=== PATIENT | female | born 1965 | race American Indian/Alaskan Native ===

== ENCOUNTER 2021-05-17 08:08 | Emergency (ER) | payer MEDICAID ==
--- NOTE | 2021-05-17 08:43 | Emergency Department Report ---
ED Syncope HPI - General Chief Complaint: Syncope Stated Complaint: SYNCOPE/HYPOTENSION Time Seen by Provider: 05/17/21 08:39 Source: patient, EMS - History of Present Illness Initial Comments: Patient is 55 years old female with history of end-stage renal disease on hemodialysis. Patient brought to the emergency room from a dialysis center for evaluation of 1 episode of syncope. Patient stated that she woke up this morning with dizziness and lightheadedness. Patient stated that she think he passed out for few seconds. Patient stated that she is still having lightheadedness. She is complaining of generalized weakness however she denied any focal weakness, speech problem, visual problem or ataxia. Patient stated that she was discharged from [facility] 2 days ago for COVID-19. Patient stated that she tested negative for discharge.. Patient stated that she took her blood pressure medicine before dialysis today. Timing/Prior Episodes: no prior history, single episode today Precipitating Factors: Positive: lightheadedness Context: standing Loss of Consciousness: brief (seconds) Current Symptoms: lightheadedness - Related Data Allergies/Adverse Reactions: Allergies No Known Allergies Allergy (Unverified 05/17/21 13:00) ED Review of Systems ROS: Stated complaint: SYNCOPE/HYPOTENSION Other details as noted in HPI Comment: All other systems reviewed and negative Constitutional: denies: chills, fever Respiratory: denies: cough, shortness of breath, SOB with exertion Cardiovascular: denies: chest pain, palpitations Gastrointestinal: denies: abdominal pain, nausea, vomiting, diarrhea Musculoskeletal: denies: back pain Neurological: weakness. denies: headache, numbness, paresthesias, confusion, abnormal gait ED Physical Exam - General General appearance: alert, in no apparent distress - Head Head exam: Present: atraumatic, normocephalic, normal inspection - Eye Eye exam: Present: normal appearance, PERRL - ENT ENT exam: Present: normal exam, normal orophraynx, mucous membranes moist - Neck Neck exam: Present: normal inspection, full ROM. Absent: tenderness, meningismus - Respiratory Respiratory exam: Present: normal lung sounds bilaterally - Cardiovascular Cardiovascular Exam: Present: regular rate, normal rhythm, normal heart sounds - GI/Abdominal GI/Abdominal exam: Present: soft, normal bowel sounds. Absent: distended, tenderness, guarding, rebound, rigid, organomegaly, mass, bruit, pulsatile mass, hernia - Extremities Exam Extremities exam: Present: normal inspection, full ROM, normal capillary refill. Absent: tenderness, calf tenderness - Back Exam Back exam: Present: normal inspection, full ROM. Absent: CVA tenderness (R), CVA tenderness (L) - Neurological Exam Neurological exam: Present: alert, oriented X3, CN II-XII intact. Absent: motor sensory deficit - Psychiatric Psychiatric exam: Present: normal mood - Skin Skin exam: Present: warm, intact, normal color ED Course Vital Signs 05/17/21 05/17/21 05/17/21 09:35 09:37 11:14 Temperature 98.7 F Pulse Rate 64 88 Respiratory 19 19 19 Rate Blood Pressure 97/67 Blood Pressure 92/64 [Right] O2 Sat by Pulse 100 100 100 Oximetry 05/17/21 12:20 Temperature Pulse Rate 74 Respiratory 19 Rate Blood Pressure Blood Pressure 95/59 [Right] O2 Sat by Pulse 100 Oximetry ED Medical Decision Making - Lab Data Result diagrams: 05/17/21 09:29 05/17/21 09:29 - EKG Data -: EKG Interpreted by [place] EKG shows normal: sinus rhythm Rate: normal - EKG Data Interpretation: no acute changes - Radiology Data Radiology results: report reviewed - Medical Decision Making Patient is 55 years old female with history of end-stage renal disease on hemodialysis. Patient brought to the emergency room from a dialysis center for evaluation of 1 episode of syncope. Patient stated that she woke up this morning with dizziness and lightheadedness. Patient stated that she think he passed out for few seconds. Patient stated that she is still having lightheadedness. She is complaining of generalized weakness however she denied any focal weakness, speech problem, visual problem or ataxia. Patient stated that she was discharged from [facility] 2 days ago for COVID-19. Patient stated that she tested negative for discharge.. Patient stated that she took her blood pressure medicine before dialysis today. Labs reviewed and showed chronic elevation of creatinine and BUN. D-dimer significantly elevated however the VQ scan showed low probability. Patient stated that she is back to normal. Patient received a liter of normal saline. Patient strongly advised to follow-up with her primary care physician in the next 2 to 3 days and to follow-up with dialysis in the morning. Critical care attestation.: If time is entered above; I have spent that time in minutes in the direct care of this critically ill patient, excluding procedure time. ED Disposition Clinical Impression: Syncope, End stage renal disease on dialysis Disposition: 01 HOME / SELF CARE / HOMELESS Is pt being admited?: No Condition: Stable Instructions: Syncope (ED), Dialysis, Syncope, [id number] Referrals: PRIMARY CARE,MD [Primary Care Provider] - 3-5 Days
--- NOTE | 2021-05-17 09:08 | Cat Scan Report ---
CT HEAD WITHOUT CONTRAST INDICATION / CLINICAL INFORMATION: Syncope. TECHNIQUE: Axial imaging performed from the skull apex through the skull base without the use of cont rast. Sagittal and coronal reformatted images. All CT scans at this location are performed using CT dose reduction for ALARA by means of automated exposure control. COMPARISON: None available. FINDINGS: CEREBRAL PARENCHYMA: No acute parenchymal abnormality is detected. Chronic cortical infarct with asso ciated chronic white matter changes in the medial left frontal lobe measures up to 5.8 x 1.6 cm in ax ial plane. Mild underlying chronic microangiopathy in the white matter is noted. HEMORRHAGE: None. EXTRA-AXIAL SPACES: Normal in size and morphology for the patient's age. VENTRICULAR SYSTEM: Normal in size and morphology for the patient's age. MIDLINE SHIFT OR HERNIATION: None. CEREBELLUM / BRAINSTEM: No significant abnormality. CALVARIUM: No significant abnormality. ORBITS: Normal as visualized. PARANASAL SINUSES / MASTOID AIR CELLS: Normal as visualized. SOFT TISSUES of HEAD: No significant abnormality. ADDITIONAL FINDINGS: None. IMPRESSION: No acute intracranial abnormality. Chronic ischemic infarct in the left SHERYL distribution. Mild nonspe cific chronic white matter changes. Signer Name: John Spencer Jr, MD Signed: 05/17/2021 9:03 AM Workstation Name: [id number]
--- NOTE | 2021-05-17 09:15 | XRay Report ---
CHEST 1 VIEW 05/17/2021 8:07 AM INDICATION / CLINICAL INFORMATION: syncope. COMPARISON: None available. FINDINGS: SUPPORT DEVICES: Left IJ central venous catheter tip projects over the right atrium. HEART / MEDIASTINUM: No significant abnormality. LUNGS / PLEURA: No significant pulmonary or pleural abnormality. No pneumothorax. ADDITIONAL FINDINGS: No significant additional findings. IMPRESSION: 1. No acute findings. Signer Name: Anibal Cochran MD Signed: 05/17/2021 9:11 AM Workstation Name: [id number]
[2021-05-17 10:17] LABS: Basophils % (Auto) 0.3 % (0.0-1.8); Eosinophils # (Auto) 0.1 K/mm3 (0.0-0.4); Eosinophils % (Auto) 1.1 % (0.0-4.3); Hematocrit 28.8 % (30.3-42.9); Hemoglobin 9.6 gm/dl (10.1-14.3); Lymphocytes # (Auto) 2.9 K/mm3 (1.2-5.4); Lymphocytes % (Auto) 30.1 % (13.4-35.0); Mean Corpuscular HGB Conc 34 % (30-34); Mean Corpuscular Volume 78 fl (79-97); Monocytes # (Auto) 0.8 K/mm3 (0.0-0.8); Monocytes % (Auto) 7.8 % (0.0-7.3); Platelet Count 147 K/mm3 (140-440); Red Blood Count 3.69 M/mm3 (3.65-5.03); Red Cell Distribution Width 15.5 % (13.2-15.2)
[2021-05-17 10:39] LABS: Alanine Aminotransferase 17 units/L (7-56); Albumin 2.9 g/dL (3.9-5); Blood Urea Nitrogen 75 mg/dL (7-17); Calcium 8.4 mg/dL (8.4-10.2); Hemolysis Index 4
[2021-05-17 10:41] LABS: BUN/Creatinine Ratio 12; Bilirubin,Direct < 0.2 mg/dL (0-0.2)
[2021-05-17 10:51] LABS: Chol/HDL Ratio 5.67 %; HDL Cholesterol 37 mg/dL (40-59); LDL Cholesterol,Direct 120 mg/dL (50-130)
--- NOTE | 2021-05-17 12:01 | Nuclear Medicine Report ---
NUCLEAR MEDICINE PERFUSION SCAN INDICATION: SOB,SYNCOPE CORRELATION: AP chest performed the same day RADIOPHARMACEUTICAL: Perfusion: 5.4 mCi Tc-99m MAA given IV FINDINGS: Perfusion images show symmetric and uniform radiotracer distribution throughout bilateral lung zones with no evidence of unmatched segmental perfusion defects. Normal cardiac silhouette. IMPRESSION: Low probability perfusion scan for pulmonary embolism. Signer Name: John Spencer Jr, MD Signed: 05/17/2021 11:57 AM Workstation Name: [id number]
[2021-05-17] MEDS ORDERED: SODIUM CHLORIDE 0.9% 1000 ML 1,000 ML IV ONE (12:14)
[2021-05-17] MEDS ORDERED: SODIUM CHLORIDE 0.9% 500 ML 500 ML ONE (12:51)
[2021-05-17 14:45] VITALS: BP 106/65
--- NOTE | 2021-05-17 17:51 | Electrocardiograph Report ---
[facility] Test Date: 2021-05-17 Test Time: 12:12:32 Pat Name: MIKA BECERRA Department: Room: Gender: F Exchange Clerk: [id number] : 1965 Requested By: KARMEN DOUGLAS Order Number: [id number] Reading MD: Sonja Burdick Measurements Intervals [place] Rate: 66 P: 50 AR: 178 QRS: 7 QRSD: 97 T: 48 QT: 424 QTc: 446 Interpretive Statements Sinus rhythm Normal ECG No previous ECG available for comparison Electronically Signed On 05-17-2021 17:51:11 EDT by Sonja Burdick
== END 2021-05-17 16:04 | disposition home or self-care (01) ==
LOC: ED 08:08
DX: N18.6 End stage renal disease (principal); R55 Syncope and collapse; Z99.2 Dependence on renal dialysis
CPT/HCPCS: 36415; 70450; 71045; 78580; 80048; 80061; 80076; 84484; 85025; 85379; 93005; 96360; 99285; A9540; J7040